=== PATIENT | female | born 1970 | race Caucasian/White ===

== ENCOUNTER 2016-05-24 12:56 | Emergency (ER) | payer SELFPAY ==
[~2016-05-24] VITALS: Ht 162.6 cm; Wt 57.0 kg
[2016-05-24] MEDS ORDERED: LITHIUM CARBON450 MG PO (14:50)
[2016-05-24] MEDS ORDERED: SAPHRIS5 MG SL (14:51)
[2016-05-24] MEDS ORDERED: CLONIDINE HCL0.1 MG PO (14:52)
[2016-05-24] MEDS ORDERED: GABAPENTIN300 MG PO (14:52)
[2016-05-24] MEDS ORDERED: CREON DR 12,001 EAC1 PO (14:53)
[2016-05-24] MEDS ORDERED: NAPROXEN500 MG PO (14:57)
[2016-05-24] MEDS ORDERED: PREDNISONE20 MG PO (14:57)
[2016-05-24] MEDS ORDERED: FLEXERIL10 MG PO (14:57)
[2016-05-24] MEDS ORDERED: LIDODERM 5% P1 PATCH TD (14:57)
[2016-05-24 15:35] VITALS: BP 141/92
[2016-05-25] MEDS ORDERED: ROBAXIN500 MG PO (16:19)
== END 2016-05-24 15:34 | disposition home or self-care (01) ==
LOC: EME 12:56
DX: M54.12 Radiculopathy, cervical region (principal); M54.16 Radiculopathy, lumbar region; F17.200 Nicotine dependence, unspecified, uncomplicated
CPT/HCPCS: 99281; 99283; J1885; J7512

== ENCOUNTER 2016-05-25 13:21 | Emergency (ER) | payer OTHER ==
[~2016-05-25] VITALS: Ht 162.6 cm; Wt 58.9 kg
[~2016-05-25 13:21] MED LIST: CLONIDINE HCL0.1 MG PO; CREON DR 12,001 EAC1 PO; FLEXERIL10 MG PO; GABAPENTIN300 MG PO; LIDODERM 5% P1 PATCH TD; LITHIUM CARBON450 MG PO; NAPROXEN500 MG PO; PREDNISONE20 MG PO; SAPHRIS5 MG SL
[2016-05-25] MEDS ORDERED: ROBAXIN500 MG PO (16:19)
[2016-05-25 16:34] VITALS: BP 110/84
== END 2016-05-25 16:34 | disposition home or self-care (01) ==
LOC: EME 13:21
DX: M54.12 Radiculopathy, cervical region (principal); Z88.6 Allergy status to analgesic agent; Z88.2 Allergy status to sulfonamides
CPT/HCPCS: 72141; 99281; 99284; J1885